=== PATIENT | male | born 1955 | race African-American/Black ===

== ENCOUNTER 2022-10-05 16:07 | Emergency (ER) | payer MEDICARE, MEDICAID, SELFPAY ==
--- NOTE | 2022-10-05 16:11 | ED.DIZZY ---
HPI - Dizziness General Chief Complaint: Dizziness Stated Complaint: dizziness Time Seen by Provider: 10/05/22 16:11 Source: patient Mode of arrival: ambulatory Limitations: no limitations History of Present Illness HPI Narrative: Mr. Mckeon is a 67-year-old male patient presenting to clinic today with complaints of dizziness. He feels unsteady on his feet. States that this has been going on x1 week. He denies any headache, visual changes, or upper respiratory symptoms. Reports that this occurs more so after he eats Related Data Home Medications Medication Instructions Recorded Confirmed No Home Medications 10/05/22 10/05/22 Allergies Allergy/AdvReac Type Severity Reaction Status Date / Time No Known Allergies Allergy Unverified 10/05/22 16:17 Review of Systems Review of Systems: Pertinent positives per HPI. Patient denies any fever, chills, rash, headache, visual changes, cough, shortness of breath, chest pain, palpitations, nausea, vomiting, diarrhea, constipation, abdominal pain, or any urinary issues. PMFSH Comments At the time of my signature, I reviewed and agree with the nursing past medical, surgical, social, and family history. There is no relevant family history pertinent to the patient complaint. Exam Narrative: General: Well-developed, well nourished, in no apparent distress Head: Normocephalic, atraumatic Eyes: Pupils equally round and reactive to light bilaterally, EOM intact, sclera and conjunctive clear, no discharge, lids normal Ears: TMs intact and clear, ear canals clear, no drainage, grossly hearing normal. Nose: Nares patent, no discharge, no inflammation, no sinus tenderness. Mouth: Oral pharynx without lesions or masses, good dentition, MMM. Neck: Supple, trachea midline, no enlargement of anterior or posterior cervical nodes, no thyroid masses or goiter palpable. Cardio: Regular rate and rhythm, s1 and s2 normal, no murmur appreciated. Resp: Clear to auscultation bilaterally, no rhonchi, rales, wheezing or rubs Course Course Emergency Course: Portions of this record may have been created with voice recognition software. Level of Care: Express Care Visit Vital Signs Vital signs: Vital Signs Temperature 36.4 C L 10/05/22 16:20 Pulse Rate 98 10/05/22 16:20 Respiratory Rate 16 10/05/22 16:20 Blood Pressure 144/85 H 10/05/22 16:20 Pulse Oximetry 100 10/05/22 16:20 Oxygen Delivery Room Air 10/05/22 16:20 Temperature 36.4 C L 10/05/22 16:31 Pulse Rate 98 10/05/22 17:09 Respiratory Rate 16 10/05/22 16:31 Blood Pressure 131/96 H 10/05/22 17:09 Pulse Oximetry 100 10/05/22 16:31 Oxygen Delivery Room Air 10/05/22 16:31 Vital signs reviewed Transfer Transfered to: [place] Transportation: Other ( private car) Transfer rationale: dizziness, 1st degree heart block, possible old septal myocardial infarction- Accepting physician: Lang LYNCH Transfer comments: TRANSFERRED VIA PRIVATE CAR MDM - Dizziness MDM Narrative Medical decision making narrative: At the time of visit patient is resting comfortably on the exam table. EKG was performed shows sinus rhythm with first-degree heart block with heart rate of 83 beats per minute. Blood sugar was 104, urine is negative with trace of blood, orthostatic blood pressures were stable. I would like to transfer the patient to the emergency room for further evaluation as he does not have a PCP or car cooper. Patient is agreeable to be transferred to [place] ER. Called and spoke with Lang LYNCH and he accepts the patient for transfer Differential Diagnosis Differential diagnosis: Likely orthostatic hypotension and other ( dizziness, cardiac arrhythmia, 1st degree heart block) Lab Data Labs: Lab Results 10/05/22 Range/Units 16:58 POC Capillary Glucose 104 (65-105) mg/dl ECG Data EKG #1: Attestation: I personally reviewed and interpreted this ECG
[2022-10-05 16:20] VITALS: BP 144/85; PULSE 98; RESP 16; TEMP 36.4; O2SAT 100
[2022-10-05 16:31] VITALS: BP 144/85; PULSE 98; RESP 16; TEMP 36.4; O2SAT 100
--- NOTE | 2022-10-05 16:43 | ECG_ITS ---
Measurements Intervals [place] Rate: 85 P: 13 NH: 211 QRS: -16 QRSD: 102 T: 28 QT: 348 QTc: 414 Interpretive Statements SINUS RHYTHM WITH FIRST DEGREE AV BLOCK CANNOT RULE OUT SEPTAL INFARCT, AGE INDETERMINATE BORDERLINE T WAVE ABNORMALITY- INFERIOR LEADS ABNORMAL ECG NO PREVIOUS ECG AVAILABLE FOR COMPARISON Electronically Signed On 10-05-2022 20:55:38 [employer] by Gaudencio Montiel D.O.
[2022-10-05 17:00] LABS: Glucose Point of Care 104 mg/dl (65-105)
[2022-10-05 17:07] VITALS: BP 136/89; PULSE 90
[2022-10-05 17:09] VITALS: BP 131/96; BP 143/91; PULSE 90; PULSE 98
--- NOTE | 2022-10-05 17:16 | PC.NURSE ---
aware of need for further evaluation. discharge planner recommended er. pt agreed.
== END 2022-10-05 17:23 | disposition short-term general hospital (02) ==
PROVIDERS: Emergency Provider Nurse Practitioner Family
DX: R42 Dizziness and giddiness (principal); I44.0 Atrioventricular block, first degree
CPT/HCPCS: 81003; 82948; 93005; 99213; G0463

== ENCOUNTER 2022-10-05 17:41 | Emergency (ER) | payer MEDICARE, MEDICAID, SELFPAY ==
[2022-10-05] VITALS (25 sets, daily range): BP systolic 129–167; BP diastolic 92–110; PULSE 72–106; RESP 11–21; TEMP 36.8; O2SAT 94–100
--- NOTE | 2022-10-05 18:10 | ECG_ITS ---
Measurements Intervals [place] Rate: 83 P: 45 [place]: 215 QRS: 2 QRSD: 102 T: 39 QT: 348 QTc: 410 Interpretive Statements SINUS RHYTHM WITH FIRST DEGREE AV BLOCK POSSIBLE LEFT ATRIAL ENLARGEMENT CANNOT RULE OUT SEPTAL INFARCT, AGE INDETERMINATE BORDERLINE T WAVE ABNORMALITY- INFERIOR LEADS BASELINE ARTIFACT- II, III, AVR, AVL, AVF ABNORMAL ECG NO PREVIOUS ECG AVAILABLE FOR COMPARISON Electronically Signed On 10-06-2022 8:06:21 [employer] by Gaudencio Montiel D.O.
[2022-10-05 18:29] LABS: Basophils Absolute Auto 0.1 K/mm3 (0.0-0.1); Basophils Percent Auto 1.1 % (0.2-1.2); Eosinophils Absolute Auto 0.3 K/mm3 (0-0.3); Eosinophils Percent Auto 5.8 % (0-4.4); Hematocrit 53.2 % (42.0-52.0); Hemoglobin 17.3 g/dL (14.0-18.0); Immature Granulocyte Absolute 0.03 K/mm3 (0.00-0.031); Immature Granulocyte Percent A 0.6 % (0-0.5); Immature Platelet Fraction Pct 7.7 % (0.9-11.2); Lymphocytes Absolute Auto 2.07 K/mm3 (0.9-3.2); Lymphocytes Percent Auto 39.1 % (18.3-44.2); Mean Corpuscular HGB Conc 32.5 g/dl (32-36); Mean Corpuscular Hemoglobin 30.2 pg (26-34); Mean Corpuscular Volume 92.8 fl (80-100); Mean Platelet Volume 9.8 fl (7.4-10.4); Monocytes Absolute Auto 0.6 K/mm3 (0.1-0.6); Monocytes Percent Auto 12.1 % (2.6-8.5); Neutrophils Absolute Auto 2.2 K/mm3 (1.3-6.7); Neutrophils Percent Auto 41.3 % (45.5-73.1); Platelet Count Result 118 k/mm3 (150-375); Red Blood Count 5.73 M/mm3 (4.6-6.20); Red Cell Distribution Width 14.6 % (11.5-14.5); White Blood Count 5.3 K/mm3 (4.5-10.0)
[2022-10-05 18:40] LABS: Alanine Aminotransferase 24 U/L (6-50); Albumin Level 4.4 g/dL (3.5-5.1); Alkaline Phosphatase 97 U/L (38-126); Anion Gap 11 mmol/L (8-16); Aspartate Amino Transferase 26 U/L (17-59); Bilirubin,Total 1.1 mg/dL (0.2-1.3); Blood Urea Nitrogen 21 mg/dL (9-20); Carbon Dioxide 27 mmol/L (22-30); Chloride 104 mmol/L (98-107); Estimated CRCL calculation 45 ml/min; Estimated Glomerular Filt Rate > 60; Glucose 92 mg/dL (65-110); Potassium 3.9 mmol/L (3.4-5.0); Sodium 142 mmol/L (137-145)
--- NOTE | 2022-10-05 19:37 | ED.DIZZY ---
HPI - Dizziness General Chief Complaint: Dizziness Stated Complaint: dizziness Time Seen by Provider: 10/05/22 19:22 History of Present Illness HPI Narrative: 67-year-old male presented to emergency department for intermittent dizziness. Patient states over the course of the last week he has had intermittent episodes during eating when he feels tired and fatigued and does have some associated dizziness. Patient states that happened today and that he took a nap and felt improved. Patient was concerned that maybe his blood pressure was the issue so he went to [facility] to check his blood pressure and it was a systolic of 160. Patient did go to the urgent care for follow-up and was referred to the emergency department for further work-up. Patient denies any complaints at this time. Related Data Home Medications Medication Instructions Recorded Confirmed No Home Medications 10/05/22 10/05/22 Allergies Allergy/AdvReac Type Severity Reaction Status Date / Time No Known Allergies Allergy Verified 10/05/22 18:09 Review of Systems Review of Systems: CONSTITUTIONAL: Denies fever, chills, or sweats. EYES: Denies visual changes, redness, or discharge. ENT: Denies rhinorrhea, congestion, sore throat, or otalgia. CARDIOVASCULAR: Denies chest pain, palpitations, or edema. RESPIRATORY: Denies cough or dyspnea. GASTROINTESTINAL: Denies abdominal pain, nausea, vomiting, or diarrhea. GENITOURINARY: Denies dysuria or hematuria. SKIN: Denies rash or itching. MUSCULOSKELETAL: Denies back pain, joint pain, or myalgia. NEUROLOGIC: See HPI Exam Narrative: APPEARANCE: Well appearing, no pain, no distress, well-nourished. HEAD: normocephalic, atraumatic. EYES: PERRLA/EOMI, conjunctivae clear. NOSE: Normal no drainage EARS:TMS clear with good light reflex.. RESPIRATORY: Airway patent, respirations nonlabored. Clear to auscultation bilaterally, no rales, rhonchi, wheezing. CARDIOVASCULAR: Regular rate and rhythm without murmurs rubs or gallops. ABDOMINAL: Soft, nontender, nondistended, normal bowel sounds MUSCULOSKELETAL: Moves all extremities. Strength/ROM intact, No edema, No calf tenderness. NEURO: Alert. Cranial nerves II through XII intact. Sling intact SKIN: Warm, dry. Normal Color Course Course Emergency Course: Patient reports he does feel improved with treatment/IV fluids. Patient was afebrile with no leukocytosis. Patient's CMP is within normal limits. Patient was negative for influenza and COVID. Patient was updated the results of his work-up and was encouraged of close follow-up with his primary care physician. All questions and concerns were addressed. Vital Signs Vital signs: Vital Signs Temperature 98.3 F 10/05/22 18:06 Pulse Rate 83 10/05/22 18:06 Respiratory Rate 16 10/05/22 18:06 Blood Pressure 159/101 H 10/05/22 18:06 Pulse Oximetry 100 10/05/22 18:06 Temperature 98.3 F 10/05/22 18:06 Pulse Rate 91 10/05/22 21:48 Respiratory Rate 14 10/05/22 21:48 Blood Pressure 155/92 H 10/05/22 21:34 Pulse Oximetry 99 10/05/22 21:48 MDM - Dizziness Lab Data Attestation: I reviewed the patient's lab results. Result diagrams: 10/05/22 18:22 10/05/22 18:22 Labs: Lab Results 10/05/22 10/05/22 10/05/22 Range/Units 18:22 18:22 20:29 WBC 5.3 (4.5-10.0) K/mm3 RBC 5.73 (4.6-6.20) M/mm3 Hgb 17.3 (14.0-18.0) g/dL Hct 53.2 H (42.0-52.0) % MCV 92.8 (80-100) fl MCH 30.2 (26-34) pg MCHC 32.5 (32-36) g/dl RDW 14.6 H (11.5-14.5) % Plt Count 118 L (150-375) k/mm3 MPV 9.8 (7.4-10.4) fl Immature Gran % (Auto) 0.6 H (0-0.5) % Neut % (Auto) 41.3 L (45.5-73.1) % Lymph % (Auto) 39.1 (18.3-44.2) % Henry % (Auto) 12.1 H (2.6-8.5) % Eos % (Auto) 5.8 H (0-4.4) % Baso % (Auto) 1.1 (0.2-1.2) % Lymph # (Auto) 2.07 (0.9-3.2) K/mm3 Henry # (Auto) 0.6 (0.1-0.6) K/mm3 Eos # (Auto) 0.3
[2022-10-05] MEDS: SODIUM CHLORIDE 0.9% IV 1,000 ML 999 ML IV CONT (20:51)
[2022-10-05 21:17] LABS: Influenza A QL RT-PCR Negative (Negative); Influenza B QL RT-PCR Negative (Negative); SARS-CoV-2 RNA PCR Negative
== END 2022-10-05 21:54 | disposition home or self-care (01) ==
PROVIDERS: Emergency Medicine; Emergency Provider Emergency Medicine
DX: R42 Dizziness and giddiness (principal); Z20.822 Contact with and (suspected) exposure to COVID-19; I44.0 Atrioventricular block, first degree; R94.31 Abnormal electrocardiogram [ECG] [EKG]
CPT/HCPCS: 36415; 80053; 81003; 82948; 85025; 85055; 87636; 93005; 96360; 99284; J7030